=== PATIENT | male | born 1960 | race Caucasian/White ===

== ENCOUNTER 2024-01-22 11:39 | Emergency (ER) | payer BC, OTHER ==
[2024-01-22 12:09] LABS: #Basophils 0.2 thou/uL (0.0-0.2); #Eosinphils 0.1 thou/uL (0.0-0.7); #Lymphocytes 2.3 thou/uL (1.20-3.40); #Monocytes 1.2 thou/uL (0.11-0.59); #Neutrophils 7.3 thou/uL (1.40-6.50); %Basophils 1.7 % (0.0-1.0); %Eosinophils 0.6 % (0.0-10.0); %Lymphocytes 20.5 % (21.0-51.0); %Monocytes 11.2 % (0.0-10.0); Hematocrit 44.8 % (42.0-52.0); Hemoglobin 15.5 g/dL (14.0-18.0); Mean Corpuscular HGB CONC 34.7 g/dL (32.0-36.0); Mean Corpuscular Hemoglobin 33.3 pg (27.0-31.0); Mean Platelet Volume 5.8 fL (7.4-10.4); Platelet Count 219 10x3/uL (130-400); RBC Distribution Width 12.7 % (11.5-14.5); Red Blood Cell (RBC) Count 4.66 mill/uL (4.70-6.10); White Blood Cell (WBC) Count 11.1 10x3/uL (4.8-10.8)
[2024-01-22 12:24] LABS: ALT (SGPT) 37 U/L (8-55); AST (SGOT) 27 U/L (5-34); Albumin 4.2 g/dL (3.4-4.8); Alkaline Phosphatase 62 U/L (40-110); Anion Gap 16 mmol/L (10-20); BUN (Urea Nitrogen) 24 mg/dL (8.4-25.7); Bilirubin, Total 0.4 mg/dL (0.2-1.2); Calc. Creatinine Clearance 0 mL/min (70-130); Calcium 9.1 mg/dL (7.8-10.44); Carbon Dioxide 22 mmol/L (23-31); Chloride 106 mmol/L (98-107); Estimated GFR 65; Globulin 2.5 g/dL (2.4-3.5); Glucose 115 mg/dL (80-115); Potassium 3.9 mmol/L (3.5-5.1); Protein, Total 6.7 g/dL (5.8-8.1); Sodium 140 mmol/L (136-145)
[2024-01-22] MEDS ORDERED: dilTIAZem 25 MG/5 ML VIAL ONE (12:26)
[2024-01-22] MEDS ORDERED: Enoxaparin 100 MG (1 mL) SYRINGE ONE (12:26)
[2024-01-22] MEDS ORDERED: Enoxaparin 30 MG (0.3 mL) SYRINGE ONE (12:27)
[2024-01-22 12:28] LABS: Troponin I Less than 0.010 ng/mL (< 0.028)
== END 2024-01-22 14:01 | disposition home or self-care (01) ==
LOC: BURERS 11:39
DX: I48.91 Unspecified atrial fibrillation (principal); I10 Essential (primary) hypertension; E11.9 Type 2 diabetes mellitus without complications; Z79.84 Long term (current) use of oral hypoglycemic drugs; Z79.4 Long term (current) use of insulin; Z79.899 Other long term (current) drug therapy
CPT/HCPCS: 71045; 80053; 83880; 84484; 85025; 93005; 96372; J1650

== ENCOUNTER 2024-06-17 16:20 | Emergency (ER) | payer MEDICARE ==
[2024-06-17] MEDS ORDERED: Cephalexin 250 MG CAP ONE (16:31)
== END 2024-06-17 16:36 | disposition home or self-care (01) ==
LOC: BURERS 16:20
DX: L03.116 Cellulitis of left lower limb (principal); I10 Essential (primary) hypertension; E11.9 Type 2 diabetes mellitus without complications; I48.91 Unspecified atrial fibrillation; L40.50 Arthropathic psoriasis, unspecified; Z79.01 Long term (current) use of anticoagulants; Z79.85 Long-term (current) use of injectable non-insulin antidiabetic drugs; Z79.84 Long term (current) use of oral hypoglycemic drugs; Z79.899 Other long term (current) drug therapy
CPT/HCPCS: 99284